=== PATIENT | female | born 1945 | race Caucasian/White ===

== ENCOUNTER 2018-11-01 14:52 | Outpatient (CLI) | payer MEDICARE, OTHER ==
--- NOTE | 2018-11-01 16:07 | Diagnostic Imaging Report ---
PATIENT MR#: [id number] PATIENT PATIENT NAME: BRITNEY PURCELL DATE OF : 1945 REFERRING PHYSICIAN: Arleth Hendricks EXAM DATE: 11/01/2018 ACCESSION NUMBER: [id number] EXAM DESCRIPTION: FOREARM 2 VIEWS Examination: Plain film left forearm History: PAIN IN LEFT ARM AFTER FALL Comparison exams: None available Findings: 2 views of the left radius and ulna demonstrates osteopenia. No evidence for fracture line. Articular degenerative changes. No soft tissue abnormality. Impression: Osteopenia and articular degenerative changes. No acute osseous abnormality. Read by: Dr. Randall Molina Transcribed by: Transcribed Date: Electronically signed by: Dr. Randall Molina Date signed: 11/01/2018 4:06:31 PM
--- NOTE | 2018-11-01 16:19 | Diagnostic Imaging Report ---
[facility] [address] [address] Report Submission Date: Nov 01, 2018 4:10:18 PM CDT Patient Study Name: BRITNEY PURCELL Date: Nov 01, 2018 2:56:24 PM CDT Modality Type: DX Gender: F Description: RIBS BILAT 3 VIEWS : 41 Institution: [facility] Physician: BOB BOWERS Exam:? Bilateral ribs 2 views Indication: BILAT RIBS, PAIN IN RIBS AFTER FALL, PT STATES ABOUT 1 WEEK AGO (Hx) / Note time : 11/01/2018 4:00:01 PM User : Virginia Davis BILAT RIBS, PAIN IN RIBS AFTER FALL, PT STATES ABOUT 1 WEEK AGO (DICOM Hx) (DICOM Hx) ? Findings: 2 views of the bilateral ribs were obtained. ? a comminuted fracture of the proximal left humerus with anterior shoulder dislocation is redemonstrated. No acute fracture of the ribs is seen. If clinical symptoms persist follow up examination may be warranted to exclude an occult process. Impression: Comminuted proximal humerus fracture with dislocation anteriorly Electronically signed on Nov 01, 2018 4:10:18 PM CDT by: Manoj KASPER
--- NOTE | 2018-11-01 16:20 | Diagnostic Imaging Report ---
[facility] [address] [facility].[address] [address] Report Submission Date: Nov 01, 2018 4:06:50 PM CDT Patient Study Name: BRITNEY PURCELL Date: Nov 01, 2018 2:56:24 PM CDT Modality Type: DX Gender: F Description: SHOULDER 2 VIEWS OR MORE : 41 Institution: [facility] Physician: BOB BOWERS Exam:? Left shoulder 3 views Indication: LEFT SHOULDER, PAIN IN LEFT SHOULDER, LIMITED ROM AFTER FALL, PT STATES ABOUT 1 WEEK AGO, PT STATES NO KNOWN PRIOR INJURY (Hx) / Note time : 11/01/2018 3:59:34 PM User : Virginia Davis LEFT SHOULDER, PAIN IN LEFT SHOULDER, LIMITED ROM AFTER FALL, PT STATES ABOUT 1 WEEK AGO (DICOM Hx) (DICOM Hx) ? Findings:? 3 views of the last shoulder were obtained. Comminuted fracture of the superior lateral humeral head is demonstrated with distraction of the fracture fragments laterally. The humeral head is dislocated anteriorly and inferiorly in relation to the glenoid. There is bony demineralization. Impression: Comminuted proximal humerus fracture with anterior dislocation Electronically signed on Nov 01, 2018 4:06:50 PM CDT by: Manoj KASPER
--- NOTE | 2018-11-01 16:22 | Diagnostic Imaging Report ---
[facility] [address] [address] Report Submission Date: Nov 01, 2018 4:04:41 PM CDT Patient Study Name: BRITNEY PURCELL Date: Nov 01, 2018 2:56:24 PM CDT Modality Type: DX Gender: F Description: HUMERUS 2 VIEWS OR MORE : 41 Institution: [facility] Physician: BOB BOWERS Exam:? Left humerus 2 views Indication: LEFT HUMERUS, PAIN IN LEFT ARM AFTER FALL, PT STATES ABOUT 1 WEEK AGO (Hx) / Note time : 11/01/2018 3:58:43 PM User : Virginia Davis LEFT HUMERUS, PAIN IN LEFT ARM AFTER FALL, PT STATES ABOUT 1 WEEK AGO (DICOM Hx) (DICOM Hx) ? Findings:? 2 views of the left humerus were obtained.There is a comminuted fracture involving the upper lateral aspect of the humeral head with distraction of the major fracture fragment laterally at least 1.1 cm. In addition the humeral head appearis anteriorly and medially dislocated in relation to the glenoid. Impression: Comminuted proximal left humerus fracture with dislocation anteriorly Electronically signed on Nov 01, 2018 4:04:41 PM CDT by: Manoj KASPER
== END 2018-11-01 14:54 ==
LOC: RAD 14:52
PROVIDERS: ATTEND Nurse Practitioner Family
DX: S20.212A Contusion of left front wall of thorax, initial encounter (principal); M79.602 Pain in left arm; M25.512 Pain in left shoulder; W19.XXXA Unspecified fall, initial encounter
CPT/HCPCS: 71110; 73030; 73060; 73090